=== PATIENT | female | born 1995 | race Two or more races ===

== ENCOUNTER 2019-09-03 19:56 | Emergency (ER) | payer OTHER ==
[~2019-09-03] VITALS: Ht 157.5 cm; Wt 68.9 kg
[2019-09-03 20:28] VITALS: BP 113/53
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
== END 2019-09-03 20:46 | disposition home or self-care (01) ==
LOC: ER 19:56
DX: S16.1XXA Strain of muscle, fascia and tendon at neck level, initial encounter (principal); S39.012A Strain of muscle, fascia and tendon of lower back, initial encounter; F07.81 Postconcussional syndrome; J45.909 Unspecified asthma, uncomplicated; Z98.890 Other specified postprocedural states; V49.49XA Driver injured in collision with other motor vehicles in traffic accident, initial encounter; Y93.89 Activity, other specified; Y92.413 State road as the place of occurrence of the external cause; Y99.8 Other external cause status